=== PATIENT | female | born 1985 | race Caucasian/White ===

== ENCOUNTER 2024-11-22 08:40 | Observation (INO) | payer SELFPAY ==
[2024-11-22] VITALS (8 sets, daily range): BP systolic 97–114; BP diastolic 60–81; PULSE 53–69; RESP 16–18; TEMP 97.4–98.4; O2SAT 97–98
[~2024-11-22] VITALS: Ht 170.2 cm; Wt 71.2 kg
[~2024-11-22 08:40] MED LIST: SPIRONOLACTONE50 MG PO
[2024-11-22 09:20] LABS: BASOPHILS % 0.3 % (0.0-1.0); EOSINOPHILS # (AUTO) 0.1 (0.0-0.4); HEMATOCRIT 47.1 % (34.2-44.1); HEMOGLOBIN 16.7 g/dL (12.0-16.0); LYMPHOCYTES # (AUTO) 1.3 (1.0-3.2); LYMPHOCYTES % 9.6 % (18.0-39.1); MEAN CORPUSCULAR HEMOGLOBIN 31.1 pg (28-32); MEAN CORPUSCULAR HGB CONC 35.5 g/dL (31-35); MEAN CORPUSCULAR VOLUME 87.7 fL (81-99); MONOCYTES # (AUTO) 0.7 (0.2-0.8); MONOCYTES % 5.1 % (4.4-11.3); NEUTROPHILS # (AUTO) 11.3 (2.1-6.9); NEUTROPHILS % 83.6 % (38.7-80.0); PLATELET COUNT 234 x10e3/uL (140-360); RED BLOOD COUNT 5.37 x10e6/uL (3.6-5.1); RED CELL DISTRIBUTION WIDTH 13.9 % (11.7-14.4); WHITE BLOOD COUNT 13.51 x10e3/uL (4.8-10.8)
[2024-11-22 09:37] LABS: INR 1.02
[2024-11-22 09:38] LABS: PARTIAL THROMBOPLASTIN TIME 29.5 seconds (23.8-35.5)
[2024-11-22] MEDS: SODIUM CHLORIDE 0.9% 1000ML 1,000 ML IV STA (09:38)
[2024-11-22] MEDS: ONDANSETRON HCL INJ 2MG/ML 2ML 2 MG/ML VIAL IV STA (09:42)
[2024-11-22] MEDS: Morphine 4mg INJECTION 4 MG/ML INJ IV STA (09:42)
[2024-11-22 09:53] LABS: ALANINE AMINOTRANSFERASE 14 IU/L (0-55); ALBUMIN 4.7 g/dL (3.5-5.0); ALBUMIN/GLOBULIN RATIO 1.7 (0.8-2.0); ALKALINE PHOSPHATASE 78 IU/L (40-150); ANION GAP 17.5 mmol/L (8-16); BLOOD UREA NITROGEN 8 mg/dL (7-26); BUN/CREATININE RATIO 10 (6-25); CALCIUM 9.8 mg/dL (8.4-10.2); CARBON DIOXIDE 19 mmol/L (22-29); CHLORIDE 103 mmol/L (98-107); CREATINE KINASE 72 IU/L (29-168); CREATININE, SERUM 0.83 mg/dL (0.57-1.11); EST GLOMERULAR FILTRATION RATE 91 ML/MIN (>=60); GLUCOSE 107 mg/dL (74-118); LIPASE 22 U/L (8-78); MAGNESIUM 1.9 MG/DL (1.3-2.1); POTASSIUM 3.5 mmol/L (3.5-5.1); SODIUM 136 mmol/L (136-145); TOTAL PROTEIN 7.5 g/dL (6.5-8.1)
[2024-11-22 10:08] LABS: TROPONIN I < 0.001 ng/mL (0-0.300)
[2024-11-22 10:10] LABS: AMPHETAMINES SCREEN,URINE NEGATIVE (NEGATIVE); BENZODIAZEPINES SCREEN,URINE POSITIVE (NEGATIVE); OPIATES SCREEN,URINE POSITIVE (NEGATIVE); PHENCYCLIDINE SCREEN,URINE NEGATIVE (NEGATIVE)
[2024-11-22 10:11] LABS: CANNABINOIDS SCREEN,URINE POSITIVE (NEGATIVE); COCAINE SCREEN,URINE NEGATIVE (NEGATIVE); METHADONE SCREEN, URINE POSITIVE (NEGATIVE)
[2024-11-22 10:26] LABS: CLARITY,URINE CLEAR (CLEAR); COLOR,URINE YELLOW (YELLOW); LEUKOCYTE ESTERASE ,URINE NEGATIVE (NEGATIVE); NITRITE,URINE NEGATIVE (NEGATIVE); PH,URINE 6.5 (5 - 7); PROTEIN,URINE DIPSTICK 2+ (NEGATIVE)
[2024-11-22 10:27] LABS: BILIRUBIN,URINE SMALL (NEGATIVE); GLUCOSE, URINE NEGATIVE (NEGATIVE); KETONES,URINE >=160 (NEGATIVE); URINE UROBILINOGEN 0.2 mg/dL (0.2 - 1)
[2024-11-22 10:30] LABS: BACTERIA,URINE MODERATE /HPF; EPITHELIAL CELLS,URINE FEW /LPF
[2024-11-22] MEDS ORDERED: ONDANSETRON HCL INJ 2MG/ML 2ML 2 MG/ML VIAL IV PRN (10:45)
[2024-11-22] MEDS: SODIUM CHLORIDE 0.9% 1000ML 1,000 ML IV SCH (11:40)
[2024-11-22] MEDS: ONDANSETRON HCL INJ 2MG/ML 2ML 2 MG/ML VIAL IV PRN (11:42)
[2024-11-22] MEDS: Morphine 4mg INJECTION 4 MG/ML INJ IV PRN (11:43)
[2024-11-22] MEDS: PROMETHAZINE 12.5MG/ NACL 0.9% 12.5 MG/50 ML BAG IV PRN (14:00)
[2024-11-22] MEDS ORDERED: PROMETHAZINE HC25 M1 PO (16:30)
[2024-11-22] MEDS ORDERED: DIAZEPAM5 MG PO (16:30)
[2024-11-22] MEDS ORDERED: AMBRISENTAN10 MG PO (16:30)
[2024-11-22] MEDS ORDERED: DIGOXIN125 MCG PO (16:30)
[2024-11-22] MEDS ORDERED: FUROSEMIDE40 MG PO (16:30)
[2024-11-22] MEDS ORDERED: ONDANSETRON ODT4 MG PO (16:30)
[2024-11-22] MEDS ORDERED: ADEMPAS2.5 MG PO (16:30)
[2024-11-22] MEDS ORDERED: DICYCLOMINE HCL20 MG PO (16:30)
[2024-11-22] MEDS ORDERED: ESOMEPRAZOLE MA20 MG PO (16:30)
[2024-11-22] MEDS ORDERED: ASPIRIN81 MG (16:30)
[2024-11-22 16:31] LABS: CREATINE KINASE 322 IU/L (29-168); TROPONIN I < 0.001 ng/mL (0-0.300)
[2024-11-22] MEDS ORDERED: [UNRECOGNIZED DRUG - OTHER] IM (22:00)
[2024-11-22] MEDS ORDERED: SPIRONOLACTONE25 MG PO (22:00)
[2024-11-22] MEDS ORDERED: DEPO-PROVE150 MG/11 IM (22:00)
[2024-11-22] MEDS: DICYCLOMINE HCL 20 MG TAB PO SCH (22:03)
[2024-11-23] VITALS (8 sets, daily range): BP systolic 111–115; BP diastolic 73–80; PULSE 56–73; RESP 18; TEMP 98.1–98.9; O2SAT 95–100
[2024-11-23 00:10] LABS: TROPONIN I 0.007 ng/mL (0-0.300)
[2024-11-23 05:32] LABS: BASOPHILS % 0.4 % (0.0-1.0); EOSINOPHILS # (AUTO) 0.1 (0.0-0.4); EOSINOPHILS % 1.4 % (0.0-6.0); HEMATOCRIT 40.7 % (34.2-44.1); HEMOGLOBIN 13.7 g/dL (12.0-16.0); LYMPHOCYTES % 21.4 % (18.0-39.1); MEAN CORPUSCULAR HEMOGLOBIN 31.6 pg (28-32); MEAN CORPUSCULAR HGB CONC 33.7 g/dL (31-35); MONOCYTES # (AUTO) 0.6 (0.2-0.8); MONOCYTES % 6.4 % (4.4-11.3); NEUTROPHILS # (AUTO) 6.5 (2.1-6.9); PLATELET COUNT 156 x10e3/uL (140-360); RED BLOOD COUNT 4.33 x10e6/uL (3.6-5.1); RED CELL DISTRIBUTION WIDTH 14.1 % (11.7-14.4); WHITE BLOOD COUNT 9.27 x10e3/uL (4.8-10.8)
[2024-11-23 06:22] LABS: ALANINE AMINOTRANSFERASE 8 IU/L (0-55); ALBUMIN 3.4 g/dL (3.5-5.0); ALBUMIN/GLOBULIN RATIO 1.5 (0.8-2.0); ALKALINE PHOSPHATASE 53 IU/L (40-150); ANION GAP 13.9 mmol/L (8-16); BILIRUBIN,TOTAL 0.6 mg/dL (0.2-1.2); BLOOD UREA NITROGEN < 5 mg/dL (7-26); BUN/CREATININE RATIO 7 (6-25); CALCIUM 8.1 mg/dL (8.4-10.2); CARBON DIOXIDE 18 mmol/L (22-29); CHLORIDE 107 mmol/L (98-107); CHOL/HDL RATIO 3.7 (3.0-3.6); CHOLESTEROL 151 MD/DL (0-199); CREATININE, SERUM 0.68 mg/dL (0.57-1.11); EST GLOMERULAR FILTRATION RATE 113 ML/MIN (>=60); GLUCOSE 80 mg/dL (74-118); HDL CHOLESTEROL 41 MG/DL (40-60); LDL CHOLESTEROL 98 MG/DL (60-130); SODIUM 136 mmol/L (136-145); TOTAL PROTEIN 5.6 g/dL (6.5-8.1); TRIGLYCERIDES 61 MG/DL (0-149)
[2024-11-23 06:25] LABS: POTASSIUM 2.9 mmol/L (3.5-5.1)
[2024-11-23] MEDS: POTASSIUM CHLORIDE 20 MEQ TAB CR PO ONE (06:49)
[2024-11-23] MEDS ORDERED: PROMETHAZINE HCL 25 MG TAB PO PRN (11:45)
[2024-11-23] MEDS ORDERED: MELATONIN 3 MG TAB PO PRN (11:45)
[2024-11-23] MEDS ORDERED: DOCUSATE SODIUM 100 MG CAP PO PRN (11:45)
[2024-11-23] MEDS ORDERED: ALBUTEROL/IPRATROPIUM 3 ML NEB NEB PRN (11:45)
[2024-11-23] MEDS ORDERED: ACETAMINOPHEN 325 MG TAB PO PRN (11:45)
[2024-11-23] MEDS: ENOXAPARIN SOD INJ 40 MG/0.4 ML SYR SC SCH (17:00)
[2024-11-23] MEDS: TAMSULOSIN HCL 0.4 MG CAP PO SCH (17:00)
[2024-11-23] MEDS: DICYCLOMINE HCL 20 MG TAB PO SCH (17:56)
[2024-11-23] MEDS ORDERED: ECOTRIN81 MG PO (19:45)
[2024-11-23] MEDS ORDERED: PRAVASTATIN SOD20 MG PO (19:46)
[2024-11-24] MEDS ORDERED: ESOMEPRAZOLE MAGNESIUM 20 MG PO SCH (06:00)
== END 2024-11-23 21:14 | disposition home or self-care (01) ==
LOC: ER 08:50 → ERHOLD 10:38 → MED/SURG2 11:58
PROVIDERS: ADMIT Internal Medicine; ATTEND Internal Medicine
DX: R07.89 Other chest pain (principal); I27.20 Pulmonary hypertension, unspecified; R11.10 Vomiting, unspecified; I25.10 Atherosclerotic heart disease of native coronary artery without angina pectoris; E87.6 Hypokalemia; E87.20 Acidosis, unspecified; I11.0 Hypertensive heart disease with heart failure; I50.32 Chronic diastolic (congestive) heart failure; Z87.891 Personal history of nicotine dependence
CPT/HCPCS: 36415 ×2; 71045; 80053 ×2; 80061; 80307; 81001; 82550; 83690; 83735; 83880; 84132; 84484; 84702; 85025 ×2; 85379; 85610; 85730; 93005; 94799; 99284; G0378 ×2; J2270 ×2; J2405 ×2; J2470; J2550 ×2; J7030 ×2